=== PATIENT | female | born 1965 | race Caucasian/White ===

== ENCOUNTER 2018-01-06 00:56 | Observation (INO) ==
[2018-01-06] MEDS ORDERED: Isovue-370 500 ML INFUS..BTL IV ONE (01:13)
--- NOTE | 2018-01-06 01:16 | Emergency Department Note ---
Disposition Clinical Impression: Chest pain Qualifiers: Chest pain type: unspecified Qualified Code(s): R07.9 - Chest pain, unspecified Disposition: Admitted As Inpatient Condition: Undetermined Referrals: Citlaly Bailon CNP [Primary Care Provider] - Forms: ED Satisfaction Letter Time of Disposition: : Chest Pain HPI - General Chief Complaint: ED Chest Pain Stated Complaint: CP Time Seen by Provider: 01/06/18 01:02 Source: patient Mode of arrival: ambulatory Limitations: no limitations Vital Signs Reviewed: Yes Nursing Notes Reviewed: Yes - History of Present Illness HPI Narrative: 52-year-old female smoker Gretta the emergency department with complaint of severe back pain that started 2 days ago. The patient described as a tearing sensation in her back that was radiating into her chest. She denies any other complaints at this time other than some associated chest pain. The patient states that she has a history of back problems but states this is very different. The patient states it is between her shoulder blades and in 2 her chest. She is very uncomfortable in the room right now due to pain. She denies any abdominal pain, nausea, vomiting, diarrhea, fevers, chills, cough. She denies any previous history of [place]. She denies any history of hemoptysis, unilateral leg swelling, recent surgeries, recent immobilizations. Severity scale (1-10): 10 - Related Data Previous Rx's Medication Instructions Recorded Naproxen [Naprosyn] 500 mg PO BID PRN #10 tablet 09/12/16 Ketorolac [Toradol] 10 mg PO Q4-6H PRN #12 tablet 09/22/17 Methocarbamol [Robaxin] 500 mg PO Q8HR #15 tablet 09/22/17 Allergies Allergy/AdvReac Type Severity Reaction Status Date / Time No Known Allergies Allergy Verified 01/06/18 00:58 All systems ED: reviewed and negative except as stated. Constitutional: Denies: fever, chills, weakness ENT ED: Denies: congestion Cardiovascular: Reports: chest pain. Denies: palpitations, dyspnea on exertion , edema, syncope Respiratory: Denies: dyspnea Gastrointestinal: Denies: abdominal pain, nausea, vomiting Genitourinary: Denies: urgency, dysuria Musculoskeletal: Reports: back pain. 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 - Social History Smoking Status: Current every day smoker Alcohol use: Reports: none Drug use: Reports: none Physical Exam - General Limitations: no limitations General appearance: alert, in no apparent distress - Head Head exam: atraumatic, normocephalic, normal inspection - Eye Eye exam: Present: normal appearance, PERRL, EOMI - ENT ENT exam: normal exam, normal oropharynx, mucous membranes moist - Neck Neck exam: Present: normal inspection, full ROM, trachea midline - Chest Chest inspection: Present: normal inspection, symmetric chest wall rise - Respiratory Respiratory exam: Present: normal lung sounds bilaterally - Cardiovascular Cardiovascular exam: Present: regular rate, normal rhythm, normal heart sounds - Abdominal Exam Abdominal exam: Present: soft, Non-Tender. Absent: tenderness, distention, guarding, rebound, rigidity - Extremities Exam Extremities exam: Present: normal inspection, full ROM. Absent: tenderness, pedal edema - Back Exam Back exam: Present: normal inspection, full ROM. Absent: tenderness - Neurological Exam Neurological exam: Present: alert, oriented X3 - Skin Skin exam: Present: warm, dry, intact, normal color Course Vital Signs Temperature 98 F 01/06/18 00:56 Pulse Rate 89 01/06/18 00:56 Respiratory Rate 18 01/06/18 00:56 Blood Pressure 135/85 01/06/18 00:56 O2 Sat by Pulse Oximetry 98 01/06/18 00:56 Temperature 98 F 01/06/18 02:04 Pulse Rate 71 01/06/18 02:04 Respiratory Rate 18 01/06/18 02:04 Blood Pressure 112/67 01/06/18 02:04 O2 Sat by Pulse Oximetry 98 01/06/18 02:04 Oxygen Delivery Oxygen Delivery Room Air Chest Pain - MDM Narrative Medical decision making narrative: Patient's workup in the emergency department demonstrates no acute process. Given the patient's risk factors combined with her age and smoking history and symptoms, we will admit the patient to the hospitalist for ACS rule out. Patient made aware and agrees to plan. She is resting comfortably in the room at this time. No further questions or concerns noted. Accepted by Dr. Chavis on behalf of Dr. Kinney. - Lab Data Lab results reviewed: Yes I reviewed the patient's lab results. Result diagrams: 01/06/18 01:16 01/06/18 01:16 Lab Results 01/06/18 01/06/18 01/06/18 Range/Units 01:16 01:16 01:16 WBC 10.5 (4.3-11.1) K/mcL RBC 4.39 (3.82-4.97) M/mcL Hgb 13.5 (11.5-15.4) g/dL Hct 39.6 (35.3-44.9) % MCV 90.2 (83.0-100.0) fL MCH 30.8 (28.0-33.3) pg MCHC 34.1 (31.6-35.5) g/dL RDW 12.9 (11.5-14.5) % Plt Count 234 (140-400) K/mcL MPV 10.2 (9.4-12.4) fL Immature Gran % 0.4 (0-4) % Seg Neutrophils % 64.5 % Lymphocytes % 24.2 % Monocytes % 7.0 % Eosinophils % 3.5 % Basophils % 0.4 % Neutrophils # 6.8 (1.6-8.9) K/mcL Lymphocytes # 2.5 (0.6-4.6) K/mcL Monocytes # 0.7 (0.0-1.3) K/mcL Eosinophils # 0.4 (0.0-0.6) K/mcL Basophils # 0.0 (0.0-0.2) K/mcL PT 10.9 (9.4-12.1) Seconds INR 1.0 APTT 30.6 (26.0-36.0) Seconds Sodium 140 (136-145) mEq/L Potassium 4.0 (3.5-5.1) mEq/L Chloride 109 H (98-107) mEq/L Carbon Dioxide 24 (23-29) mEq/L BUN 14 (6-20) mg/dL Creatinine 0.92 (0.60-1.20) mg/dL Est GFR ( Amer) > 60 (> 60) Est GFR (Non-Af Amer) > 60 (> 60) BUN/Creatinine Ratio 15 (6-26) Glucose 117 H (70-105) mg/dL Calculated Osmolality 292 (280-300) Calcium 9.2 (8.6-10.3) mg/dL Troponin I < 0.03 (< 0.04) ng/mL - Radiology Data Radiology results reviewed: Yes I reviewed the patient's radiology results. Chest CTA 01/06/18 01:13 IMPRESSION: No evidence of pulmonary embolism or acute pulmonary abnormality. D/ / Jw Carroll MD / Jw Carroll MD Interpreting Provider: Jw Carroll MD - EKG Data EKG attestation: Yes I reviewed and interpreted this EKG. EKG results narrative: Heart rate 89 beats for minute. Normal sinus rhythm. No ST elevation or ST depression noted. EKG overall similar to EKG of from a 09/22/2017. No acute changes noted.
[2018-01-06 01:28] LABS: Basophils % 0.4 %; Eosinophils # 0.4 K/mcL (0.0-0.6); Eosinophils % 3.5 %; Hematocrit 39.6 % (35.3-44.9); Hemoglobin 13.5 g/dL (11.5-15.4); Immature Granulocytes % 0.4 % (0-4); Lymphocytes # 2.5 K/mcL (0.6-4.6); Lymphocytes % 24.2 %; Mean Corpuscular HGB Conc 34.1 g/dL (31.6-35.5); Mean Corpuscular Hemoglobin 30.8 pg (28.0-33.3); Mean Corpuscular Volume 90.2 fL (83.0-100.0); Mean Platelet Volume 10.2 fL (9.4-12.4); Monocytes # 0.7 K/mcL (0.0-1.3); Neutrophils # 6.8 K/mcL (1.6-8.9); Platelet Count 234 K/mcL (140-400); Red Blood Count 4.39 M/mcL (3.82-4.97); Red Cell Distribution Width 12.9 % (11.5-14.5); Segmented Neutrophils % 64.5 %
--- NOTE | 2018-01-06 01:38 | Emergency Department Note ---
Disposition Clinical Impression: Chest pain Qualifiers: Chest pain type: unspecified Qualified Code(s): R07.9 - Chest pain, unspecified Disposition: Still a Patient Forms: ED Satisfaction Letter General Adult HPI - General Chief complaint: ED Chest Pain Stated complaint: CP Time Seen by Provider: 01/06/18 01:02 Source: patient Mode of arrival: ambulatory Limitations: no limitations - History of Present Illness Pain Scale: 10 - Related Data Previous Rx's Medication Instructions Recorded Naproxen [Naprosyn] 500 mg PO BID PRN #10 tablet 09/12/16 Ketorolac [Toradol] 10 mg PO Q4-6H PRN #12 tablet 09/22/17 Methocarbamol [Robaxin] 500 mg PO Q8HR #15 tablet 09/22/17 Allergies Allergy/AdvReac Type Severity Reaction Status Date / Time No Known Allergies Allergy Verified 01/06/18 00:58 Constitutional: Denies: fever, chills, weakness ENT ED: Denies: congestion Cardiovascular: Reports: chest pain. Denies: palpitations, dyspnea on exertion , edema, syncope Respiratory: Denies: dyspnea Gastrointestinal: Denies: abdominal pain, nausea, vomiting Genitourinary: Denies: urgency, dysuria Musculoskeletal: Reports: back pain. 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 I agree with the documented findings, disposition and treatment plan as described except to the extent set forth below. Patient seen with emergency medicine resident Dr. Bertram Bhatia, Please see a copy of his note for details of the H&P, ED evaluation, management and disposition. I have independently evaluated the patient and confirmed appropriate portions of the history and physical exam. Briefly: 52-year-old female no known prior coronary artery disease or stents presents with chest discomfort tearing going into the back. Patient is hypertensive hypocholesterolemic smoker and family history. Patient did troponin EKG shows no acute ischemic changes patient getting CT and REM the chest to exclude possible of aortic dissection. Admission is being considered disposition pending. Time: 01:37 Vital Signs Temperature 98 F 01/06/18 00:56 Pulse Rate 89 01/06/18 00:56 Respiratory Rate 18 01/06/18 00:56 Blood Pressure 135/85 01/06/18 00:56 O2 Sat by Pulse Oximetry 98 01/06/18 00:56 Temperature 98 F 01/06/18 00:56 Pulse Rate 89 01/06/18 00:56 Respiratory Rate 18 01/06/18 00:56 Blood Pressure 135/85 01/06/18 00:56 O2 Sat by Pulse Oximetry 98 01/06/18 00:56 Oxygen Delivery Oxygen Delivery Room Air Medical Decision Making - Lab Data Result diagrams: 01/06/18 01:16 Lab Results 01/06/18 Range/Units 01:16 WBC 10.5 (4.3-11.1) K/mcL RBC 4.39 (3.82-4.97) M/mcL Hgb 13.5 (11.5-15.4) g/dL Hct 39.6 (35.3-44.9) % MCV 90.2 (83.0-100.0) fL MCH 30.8 (28.0-33.3) pg MCHC 34.1 (31.6-35.5) g/dL RDW 12.9 (11.5-14.5) % Plt Count 234 (140-400) K/mcL MPV 10.2 (9.4-12.4) fL Immature Gran % 0.4 (0-4) % Seg Neutrophils % 64.5 % Lymphocytes % 24.2 % Monocytes % 7.0 % Eosinophils % 3.5 % Basophils % 0.4 % Neutrophils # 6.8 (1.6-8.9) K/mcL Lymphocytes # 2.5 (0.6-4.6) K/mcL Monocytes # 0.7 (0.0-1.3) K/mcL Eosinophils # 0.4 (0.0-0.6) K/mcL Basophils # 0.0 (0.0-0.2) K/mcL
[2018-01-06 01:42] LABS: Prothrombin Time 10.9 Seconds (9.4-12.1)
[2018-01-06 01:45] LABS: Activated Partial Thrombo Time 30.6 Seconds (26.0-36.0)
[2018-01-06 01:49] LABS: BUN/Creatinine Ratio 15 (6-26); Blood Urea Nitrogen 14 mg/dL (6-20); Calcium 9.2 mg/dL (8.6-10.3); Carbon Dioxide 24 mEq/L (23-29); Chloride 109 mEq/L (98-107); Glucose 117 mg/dL (70-105); Osmolality,Calculated 292 (280-300); Sodium 140 mEq/L (136-145); eGFR For African Americans > 60 (> 60); eGFR For Non-African Americans > 60 (> 60)
[2018-01-06 01:50] LABS: Troponin I < 0.03 ng/mL (< 0.04)
--- NOTE | 2018-01-06 03:53 | Internal Med History&Physical ---
Date of Encounter: 01/05/18 Time of Encounter: 03:50 Internal Medicine - H&P: HPI Chief complaint: Atypical chest pain History of present illness: 52-year-old female smoker Gretta the emergency department with complaint of severe back pain that started 2 days ago. The patient described as a tearing sensation in her back that was radiating into her chest. He describes the pain as sharp in character in between her shoulder blades and radiating to her chest. She denies any abdominal pain, nausea, vomiting, diarrhea, fevers, chills, cough. She denies any previous history of [place]. EKG revealed no ST T wave changes ST was also negative, patient was admitted for further evaluation and management of a typical chest pain Past Med Surg Social Fam HX - Past Medical History Medical history: other Psychiatric history: anxiety - Past Surgical History Surgical History: non-contributory - Social History Smoking Status: Current every day smoker Packs per day: 2 Smokeless Tobacco Status: No Alcohol use: none Drug use: none - Family History Mother Living Status: Still Living Hx Family Cardiac Disorders: Yes ([place]) Hx Family Respiratory Disorders: No Hx Family Cancer: Yes ([place]) Hx Family GI Disorders: No Hx Family Genitourinary Disorders: No Hx Family Endocrine Disorder: No Hx Family Musculoskeletal Disorders: No Hx Family Neuromuscular Disorders: No Hx Family Neurologic Disorders: No Hx Family HEENT Disorders: No Hx Family Autoimmune Disorders: No Hx Family Reproductive Disorders: No Hx Family Psychosocial Disorders: No Hx Family Medical Disorders: No Father Living Status: Still Living Hx Family Cardiac Disorders: No Hx Family Respiratory Disorders: No Hx Family Cancer: No Hx Family GI Disorders: No Hx Family Genitourinary Disorders: No Hx Family Endocrine Disorder: No Hx Family Musculoskeletal Disorders: No Hx Family Neuromuscular Disorders: No Hx Family Neurologic Disorders: No Hx Family HEENT Disorders: No Hx Family Autoimmune Disorders: No Hx Family Reproductive Disorders: No Hx Family Psychosocial Disorders: No Internal Medicine - H&P: Meds No Known Home Drugs 01/06/18 [History] 3 Allergy/AdvReac Type Severity Reaction Status Date / Time No Known Allergies Allergy Verified 01/06/18 00:58 All Systems PM: A 10-system review of systems was performed and is negative for pertinent findings except as documented above in the HPI. - Constitutional Vitals: Temp Pulse Resp BP Pulse Ox 98 F 71 20 128/71 98 01/06/18 02:04 01/06/18 02:04 01/06/18 03:34 01/06/18 03:34 01/06/18 02:04 Internal Med - H&P Results - Labs CBC & Chem 7: 01/06/18 01:16 01/06/18 01:16 - Assessment and plan (1) Chest pain Current Visit: Yes Status: Acute Assessment and plan: ASSESSMENT: - Chest pain r/o due to*CAD DD *Muskuloskeletal CP - myofascial strain, costochondritis *GERD *Esophageal spasm *Pericarditis - unlikely *Pneumonia - no infiltrate on CXR PLAN: - cardiac enzymes x 2 q 8 hr - EKG now and in AM - ASA - O2 by NC to keep SpO2 greater than 92% - UA - CBCD, BMP in AM - Fasting lipids - Morphine 2 mg IV q 2-4 hr PRN chest pain - Tylenol 650 mg PO q 4-6 hr PRN headache - Home meds (check list) - Heparin 5000 U SQ BID - 2D Echo - Cardiology consult Qualifiers: Chest pain type: unspecified Qualified Code(s): R07.9 - Chest pain, unspecified (2) DVT prophylaxis Current Visit: Yes Status: Acute - Time Spent With Patient Total time spent is greater than 50% in coordination of care (as documented) at patient's floor/unit and/or counseling patient:
[2018-01-06] MEDS ORDERED: Naloxone 0.4 MG/ML INJ IVP PRN (04:07)
[2018-01-06] MEDS ORDERED: Acetaminophen 325 MG TABLET PO PRN (04:07)
[2018-01-06] MEDS: *HR* HYDROcodone/Acet 5/325 mg TABLET PO PRN (04:30)
[2018-01-06 05:28] LABS: Prothrombin Time 11.2 Seconds (9.4-12.1)
[2018-01-06 05:31] LABS: Activated Partial Thrombo Time 30.3 Seconds (26.0-36.0)
[2018-01-06] MEDS ORDERED: Ketorolac 30 MG/ML VIAL IVP ONE ×3 (08:38→20:32)
[2018-01-06] MEDS: Famotidine 20 MG TABLET PO SCH (09:28)
--- NOTE | 2018-01-06 11:29 | Internal Med Progress Note ---
Date of Encounter: 01/06/18 Time of Encounter: 11:27 - Assessment and plan (1) Chest pain Current Visit: Yes Status: Acute Assessment and plan: Presented with midsternal chest tightness/pressure with intermittent sharp pains radiating to mid back Aggravating factors include use of bilateral upper extremities, denies any shortness of breath, diaphoresis or nausea Also reporting excessive belching and indigestion ACS rule out, consider GERD as another cause of chest pain CXR negative for acute process Troponins negative 3 ECG per my review normal sinus rhythm without any ST elevations or depressions concerning for ischemia TTE completed-pending Obtain pharmacologic stress test SL nitroglycerin for chest pain as needed Continuous telemetry Check lipid panel Remain nothing by mouth Daily labs Qualifiers: Chest pain type: unspecified Qualified Code(s): R07.9 - Chest pain, unspecified (2) DVT prophylaxis Current Visit: Yes Status: Acute Assessment and plan: Low risk, early ambulation - Time Spent With Patient Total time spent is greater than 50% in coordination of care (as documented) at patient's floor/unit and/or counseling patient: 25 - 35 minutes - Subjective Interval history: 52-year-old female smoker presenting to the emergency department with cc of chest pressure/discomfort with radiation to the mid back. Review of chart reveals the patient was reporting a tearing sensation in her back that was radiating into her chest however, per my review this morning the patient denies any tearing sensation. Continuing to report intermittent chest tightness/ pressure with intermittent pains of short duration worsened with use of upper extremities. Also reporting pain along the left intercostal margins with deep inspiration. Patient also reporting excessive belching and indigestion. No other concerns at this time - Constitutional Vitals: Temp Pulse Resp BP Pulse Ox 98.6 F 77 18 113/77 97 01/06/18 07:06 01/06/18 07:06 01/06/18 07:06 01/06/18 07:06 01/06/18 07:06 General appearance: Present: A&O X 3, no acute distress, answers questions appropriately - Head Head exam: Present: atraumatic, normocephalic - Eye Eye exam: Present: PERRL, conjuntiva pink, sclera anicteric Pupils: Present: PERRL - Neck Neck exam general surgery: Present: supple, trachea midline. Absent: lymphadenopathy - Respiratory Respiratory exam: Present: CTAB. Absent: accessory muscle use, chest wall tenderness, decreased breath sounds, prolonged expiratory phase, rales, respiratory distress, rhonchi, wheezes, tachypnea - Cardiovascular Cardiovascular exam: Present: RRR, +S1, +S2. Absent: diastolic murmur, gallop, rubs, systolic murmur - GI/Abdominal GI/Abdominal exam: Present: normal bowel sounds, soft, no peritoneal signs. Absent: distended, tenderness - Extremities Exam Extremities exam: Present: warm, radial pulses palpable and symmetrical. Absent : calf tenderness, cyanotic, pedal edema - Neurological Exam Neurological exam: Present: CN II-XII intact, oriented X3, no focal deficits. Absent: pronater drift, facial droop, speech deficit - Skin Skin exam: Present: dry, intact Internal Medicine: Result - Labs CBC & Chem 7: 01/06/18 01:16 01/06/18 01:16 Labs: Cardiac Enzymes 01/06/18 01/06/18 Range/Units 04:43 10:21 Troponin I < 0.03 < 0.03 (< 0.04) ng/mL - ABG Interpretation ABG results: PT/INR, D-dimer PT 11.2 Seconds (9.4-12.1) 01/06/18 04:43 Consult Discharge Plan - Plan Referrals: Citlaly Bailon, FISH HATCHERY SUPERINTENDENT [Primary Care Provider] -
[2018-01-06] MEDS ORDERED: Nitroglycerin 0.4 MG TAB.SUBL SL PRN (11:35)
[2018-01-06] MEDS ORDERED: Regadenoson 0.4 MG/5 ML SYRINGE IVP ONE (12:08)
[2018-01-06] MEDS: Nicotine 21 MG PATCH.TD24 TD SCH (21:12)
[2018-01-07 01:48] LABS: Basophils # 0.1 K/mcL (0.0-0.2); Basophils % 0.4 %; Eosinophils # 0.4 K/mcL (0.0-0.6); Eosinophils % 3.2 %; Hematocrit 37.3 % (35.3-44.9); Immature Granulocytes % 0.2 % (0-4); Lymphocytes # 2.9 K/mcL (0.6-4.6); Lymphocytes % 25.3 %; Mean Corpuscular HGB Conc 34.9 g/dL (31.6-35.5); Mean Corpuscular Hemoglobin 30.4 pg (28.0-33.3); Mean Corpuscular Volume 87.4 fL (83.0-100.0); Mean Platelet Volume 10.5 fL (9.4-12.4); Monocytes # 0.8 K/mcL (0.0-1.3); Monocytes % 7.3 %; Neutrophils # 7.3 K/mcL (1.6-8.9); Platelet Count 245 K/mcL (140-400); Red Blood Count 4.27 M/mcL (3.82-4.97); Red Cell Distribution Width 13.1 % (11.5-14.5); Segmented Neutrophils % 63.6 %
[2018-01-07 02:07] LABS: Alanine Aminotransferase 10 Units/L (7-52); Albumin 4.1 g/dL (3.5-5.7); Alkaline Phosphatase 78 Units/L (34-104); Aspartate Amino Transferase 9 Units/L (13-39); BUN/Creatinine Ratio 16 (6-26); Bilirubin,Total 0.3 mg/dL (0.3-1.0); Blood Urea Nitrogen 11 mg/dL (6-20); Calcium 9.6 mg/dL (8.6-10.3); Carbon Dioxide 25 mEq/L (23-29); Chloride 109 mEq/L (98-107); Glucose 94 mg/dL (70-105); Magnesium 2.2 mg/dL (1.6-2.6); Osmolality,Calculated 291 (280-300); Phosphorous 3.7 mg/dL (2.7-4.5); Potassium 3.8 mEq/L (3.5-5.1); Sodium 141 mEq/L (136-145); Total Protein 6.5 g/dL (6.4-8.9); eGFR For African Americans > 60 (> 60); eGFR For Non-African Americans > 60 (> 60)
[2018-01-07 02:08] LABS: Albumin/Globulin Ratio 1.7 (1.1-2.2); Chol/HDL Ratio 4.5 (0-4.9); Cholesterol 175 mg/dL (< 200); Globulin 2.4 g/dL (2.4-3.5); HDL Cholesterol 39 mg/dL (40-59); LDL Cholesterol,Calculated 100 mg/dL (0-99); Triglycerides 181 mg/dL (< 150)
[2018-01-07] MEDS: *HR* HYDROcodone/Acet 5/325 mg TABLET PO PRN (02:51)
[2018-01-07] MEDS: Famotidine 20 MG TABLET PO SCH (07:47)
[2018-01-07] MEDS: Nicotine 21 MG PATCH.TD24 TD SCH (07:47)
--- NOTE | 2018-01-07 11:31 | Electrocardiograph Report ---
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
--- NOTE | 2018-01-07 14:51 | Internal Med Progress Note ---
Date of Encounter: 01/07/18 Time of Encounter: 14:49 - Assessment and plan (1) Chest pain Current Visit: Yes Status: Acute Assessment and plan: Presented with midsternal chest tightness/pressure with intermittent sharp pains radiating to mid back Aggravating factors include use of bilateral upper extremities, denies any shortness of breath, diaphoresis or nausea reporting symptoms of biliary colic with upper abdominal pain, nausea, and pain under shoulder blades ACS ruled out with negative stress test, TTE-60-65% moderate LV diastolic dysfunction, troponins negative 3 ECG per my review normal sinus rhythm without any ST elevations or depressions concerning for ischemia With continued pain, consider noncardiac cause Continuous telemetry Daily labs Qualifiers: Chest pain type: unspecified Qualified Code(s): R07.9 - Chest pain, unspecified (2) Abdominal pain Current Visit: Yes Status: Acute Assessment and plan: RUQ, LLQ abdominal pain, with radiation to B/L chest and below shoulder blades and nausea as well as belching denies any aggrevating or alleviating factors etiology unclear lipase now gallbladder US Qualifiers: Abdominal location: upper abdomen, unspecified Qualified Code(s): R10.10 - Upper abdominal pain, unspecified (3) DVT prophylaxis Current Visit: Yes Status: Acute Assessment and plan: Low risk, early ambulation - Time Spent With Patient Total time spent is greater than 50% in coordination of care (as documented) at patient's floor/unit and/or counseling patient: 25 - 35 minutes - Subjective Interval history: 52-year-old female smoker presenting to the emergency department with cc of chest pressure/discomfort with radiation to the mid back. Review of chart reveals the patient was reporting a tearing sensation in her back that was radiating into her chest however, per my review this morning the patient denies any tearing sensation. Continuing to report intermittent chest tightness/ pressure with intermittent pains of short duration worsened with use of upper extremities. She is experiencing nausea, pain in back below shoulder blades, belching and upper abdominal pain. - Constitutional Vitals: Temp Pulse Resp BP Pulse Ox 98.4 F 70 16 129/72 97 01/07/18 12:02 01/07/18 12:02 01/07/18 12:02 01/07/18 12:02 01/07/18 12:02 General appearance: Present: mild distress (crying d/t abdominal pain and chest pressure/discomfort), A&O X 3, answers questions appropriately - Head Head exam: Present: atraumatic, normocephalic - Eye Eye exam: Present: PERRL, conjuntiva pink, sclera anicteric Pupils: Present: PERRL - Neck Neck exam general surgery: Present: supple, trachea midline. Absent: lymphadenopathy - Respiratory Respiratory exam: Present: CTAB. Absent: accessory muscle use, rales, rhonchi, wheezes - Cardiovascular Cardiovascular exam: Present: RRR, +S1, +S2. Absent: diastolic murmur, gallop, rubs, systolic murmur - GI/Abdominal GI/Abdominal exam: Present: normal bowel sounds, soft, tenderness (tenderness to RUQ, LLQ), no peritoneal signs. Absent: distended, firm, guarding, rebound - Extremities Exam Extremities exam: Present: warm, radial pulses palpable and symmetrical. Absent : calf tenderness, cyanotic, pedal edema - Neurological Exam Neurological exam: Present: CN II-XII intact, oriented X3, no focal deficits. Absent: pronater drift, facial droop, speech deficit - Skin Skin exam: Present: dry, intact Internal Medicine: Result - Labs CBC & Chem 7: 01/07/18 01:06 01/07/18 01:06 Labs: Short CBC 01/07/18 Range/Units 01:06 WBC 11.5 H (4.3-11.1) K/mcL Hgb 13.0 (11.5-15.4) g/dL Hct 37.3 (35.3-44.9) % Plt Count 245 (140-400) K/mcL Neutrophils # 7.3 (1.6-8.9) K/mcL BMP 01/07/18 01:06 Sodium 141 Potassium 3.8 Chloride 109 H Carbon Dioxide 25 BUN 11 Creatinine 0.70 Glucose 94 Calcium 9.6 Cardiac Enzymes 01/06/18 Range/Units 16:57 Troponin I < 0.03 (< 0.04) ng/mL Liver Function 01/07/18 Range/Units 01:06 Total Bilirubin 0.3 (0.3-1.0) mg/dL AST 9 L (13-39) Units/L ALT 10 (7-52) Units/L Alkaline Phosphatase 78 (34-104) Units/L Albumin 4.1 (3.5-5.7) g/dL - ABG Interpretation ABG results: PT/INR, D-dimer PT 11.2 Seconds (9.4-12.1) 01/06/18 04:43 - Impressions Impressions Echocardiogram 01/06/18 07:12 Impressions: LVEF 60-65%. Normal LV chamber size, wall thickness and function. Moderate left ventricular diastolic dysfunction. Normal right ventricular structure and function. No evidence of pulmonary hypertension. No significant valvular dysfunction. Left Ventricular Wall Motion: Rest Echo Findings All wall segments showed normal motion. Findings: Study Quality * Technically adequate exam. ECG Findings * Normal sinus rhythm. Left Ventricle * LVEF 60-65%. * Normal LV chamber size, wall thickness and function. * Moderate left ventricular diastolic dysfunction. Right Ventricle * Normal right ventricular structure and function. Left Atrium * Moderately dilated left atrium. Right Atrium * Mildly dilated right atrium. Aortic Valve * Aortic valve not well visualized. * No aortic regurgitation. * No aortic stenosis. Mitral Valve * Normal mitral valve structure and function. * No mitral stenosis. * Trace mitral regurgitation. Tricuspid Valve * Normal tricuspid valve structure and function. * Trace tricuspid regurgitation. * No evidence of pulmonary hypertension. Pulmonic Valve * Normal pulmonic valve structure and function. * No pulmonic regurgitation. Aorta * Normally sized aortic root. Pericardium * The pericardium appears normal. IVC * Normal IVC dimensions and inspiratory collapse. Pulmonary Artery * Normal visualized portions of the main pulmonary artery. Consult Discharge Plan - Plan Referrals: Citlaly Bailon, OFFICE SYSTEM ANALYST [Primary Care Provider] -
[2018-01-07] MEDS ORDERED: Ketorolac 30 MG/ML VIAL IVP ONE (15:10)
--- NOTE | 2018-01-07 16:05 | Discharge Summary ---
- NOTES TO OUTPATIENT PROVIDER Notes to Outpatient Provider: admitted for CP, ACS ruled out. Continuing to have chest pressure/discomfort but appear to a GI issue. Reporting upper abdominal pain with radiation into the chest and below the shoulder blades as well as nausea and belching (biliary colic s/sx) Offered further evaluation while in the hospital but she declined. Instructed to f/u with PCP in 1-week of d/c. May consider US gallbladder if s/sx persist Orders not resulted at time of discharge: Pending orders 01/06/18 04:07 Urinalysis reflex Microscopic [URIN] Routine 01/06/18 11:36 NM selene perf SPECT multi [NM] Routine 01/07/18 14:47 US gall bladder [US] Routine Date of Encounter: 01/07/18 Time of Encounter: 16:01 - Discharge Diagnosis (1) Chest pain Priority: Primary Status: Acute Assessment and Plan: Presented with midsternal chest tightness/pressure with intermittent sharp pains radiating to mid back Aggravating factors include use of bilateral upper extremities, denies any shortness of breath, diaphoresis or nausea reporting symptoms of biliary colic with upper abdominal pain, nausea, and pain under shoulder blades ACS ruled out with negative stress test, TTE-60-65% moderate LV diastolic dysfunction, troponins negative 3 ECG per my review normal sinus rhythm without any ST elevations or depressions concerning for ischemia With continued pain, consider noncardiac cause Continuous telemetry Daily labs -Follow hospital course. Patient stable medical condition at time of discharge. She was given 1 dose of IV Toradol and discomfort subsided. She is instructed to follow-up with PCP within 1 week of discharge. Additionally, she is instructed to return to the ED showed a chest pain/pressure returned or abdominal discomfort persists or worsen. Patient verbalizes understanding. Denies any further questions at this time. Qualifiers: Chest pain type: unspecified Qualified Code(s): R07.9 - Chest pain, unspecified (2) Abdominal pain Priority: Secondary Status: Acute Assessment and Plan: RUQ, LLQ dull abdominal discomfort, etiology unclear, with radiation to B/L chest and below shoulder blades and nausea as well as belching. Pain is intermittent. She is also reporting some indigestion. Given her presentation consider dx of GERD, but this could also be colic. She was offered further workup while inpatient but opted for discharge Mild abdominal upper abdominal tenderness to palpation abdominal exam benign lipase WNL 78 pain resolved with 1 dose of toradol Qualifiers: Abdominal location: upper abdomen, unspecified Qualified Code(s): R10.10 - Upper abdominal pain, unspecified (3) GERD (gastroesophageal reflux disease) Priority: Secondary Status: Suspected Assessment and Plan: suspect GERD in the setting of indigestion, belching, and upper abdominal discomfort abdominal exam is benign send home with H2 instructed to f/u with PCP Qualifiers: Esophagitis presence: esophagitis presence not specified Qualified Code(s) : K21.9 - Gastro-esophageal reflux disease without esophagitis Hospital course: Ms. Gore is a 52 year old female who presented with complaints of severe back pain and lower shoulder is with radiation around to the upper abdomen and bilateral chest. Denies any shortness of breath, or diaphoresis. Does admit to nausea and belching. No prior medical history of CAD. Due to presentation she was worked up for acute coronary syndrome. Workup revealed negative cardiac enzymes, unremarkable TTE and stress test negative for ischemia. With unremarkable cardiac workup consider noncardiac cause of discomfort. Patient is describing symptoms of GERD as well as possible biliary colic. She was offered further workup and evaluation while inpatient however, declined and stated that she would follow-up with her PCP. She has been instructed to follow up with her PCP within 1 week of discharge. Additionally, she is instructed to return to the ED should symptoms persist or worsen. She will be d /c with an H2 for GERD. Please see assessment and plan for the rest of the hospital course. Discharge discussed with: patient - Time Spent with Patient Total time spent providing and/or coordinating discharge services: Less than 30 minutes - Discharge Medications Prescriptions: Famotidine [Pepcid] 20 mg PO DAILY 30 Days #30 tablet Home Medications: Famotidine [Pepcid] 20 mg PO DAILY 30 Days #30 tablet 01/07/18 [Rx] Allergies/Adverse Reactions: 3 Allergy/AdvReac Type Severity Reaction Status Date / Time No Known Allergies Allergy Verified 01/06/18 00:58 Date of admission: 01/06/18 03:29 Primary care physician: Citlaly Bailon CNP Discharging clinician: Elias Cerrato Anticipated date of discharge: 01/07/18 - Constitutional Vitals: Temp Pulse Resp BP Pulse Ox 98.4 F 70 16 129/72 97 01/07/18 12:02 01/07/18 12:02 01/07/18 12:02 01/07/18 12:02 01/07/18 12:02 General appearance: Present: mild distress (crying d/t abdominal pain and chest pressure/discomfort), A&O X 3, answers questions appropriately - Head Head exam: Present: atraumatic, normocephalic - Eye Eye exam: Present: PERRL, conjuntiva pink, sclera anicteric Pupils: Present: PERRL - Neck Neck exam general surgery: Present: supple, trachea midline. Absent: lymphadenopathy - Respiratory Respiratory exam: Present: CTAB. Absent: accessory muscle use, rales, rhonchi, wheezes - Cardiovascular Cardiovascular exam: Present: RRR, +S1, +S2. Absent: diastolic murmur, gallop, rubs, systolic murmur - GI/Abdominal GI/Abdominal exam: Present: normal bowel sounds, soft, tenderness, no peritoneal signs. Absent: distended Additional comments: very mild upper abdominal abdominal tenderness to palpation, does not appear to have an acute abdomen - Extremities Exam Extremities exam: Present: warm, radial pulses palpable and symmetrical. Absent : calf tenderness, cyanotic, pedal edema - Neurological Exam Neurological exam: Present: CN II-XII intact, oriented X3, no focal deficits. Absent: pronater drift, facial droop, speech deficit - Skin Skin exam: Present: dry, intact - Patient Status Disposition: Home, Self-Care Condition: Good Functional capacity at discharge: independent ambulation Overall status at discharge: patient is progressing back to baseline - Discharge Instructions Instructions: Chest Pain (DC) Follow Up With: Citlaly Bailon, PSYCHIATRIC NURSING ASSISTANT [Primary Care Provider] - - Diet and Activity Activity: increase activity as tolerated, resume usual activities as tolerated Diet: advance to your usual diet
[2018-01-07 16:07] VITALS: BP 142/84
== END 2018-01-07 17:25 | disposition home or self-care (01) ==
LOC: 3BNU 00:56 → EMEROO 00:56 → 3BNU 03:35
PROVIDERS: ADMIT Family Medicine; ATTEND Family Medicine